=== PATIENT | male | born 1995 | race Two or more races ===

== ENCOUNTER 2023-04-20 23:27 | Emergency (ER) | payer OTHER ==
[~2023-04-20] VITALS: Ht 172.7 cm; Wt 79.4 kg
[2023-04-21] MEDS ORDERED: ZYNCOF 20-400120 ML PO (03:10)
[2023-04-21] MEDS ORDERED: OSEL75CA PO (03:10)
== END 2023-04-21 03:16 ==
LOC: ER 23:27
DX: R50.9 Fever, unspecified (principal)

== ENCOUNTER 2023-05-18 01:22 | Emergency (ER) | payer OTHER ==
[~2023-05-18] VITALS: Ht 172.7 cm; Wt 83.9 kg
[~2023-05-18 01:22] MED LIST: OSEL75CA PO; ZYNCOF 20-400120 ML PO
== END 2023-05-18 04:17 | disposition home or self-care (01) ==
LOC: ER 01:22
DX: R09.81 Nasal congestion (principal); J00 Acute nasopharyngitis [common cold]; Z20.822 Contact with and (suspected) exposure to COVID-19; Z88.6 Allergy status to analgesic agent